=== PATIENT | male | born 1985 | race Caucasian/White ===

== ENCOUNTER 2020-10-26 11:33 | Emergency (ER) | payer BC ==
[~2020-10-26] VITALS: Ht 182.9 cm; Wt 122.5 kg
[~2020-10-26 11:33] MED LIST: NORCO 5-325 TA1 EACH PO; PROAIR HFA8.5 GM INH; ZITHROMAX250 MG PO
--- OUTSIDE RECORDS SUMMARY | 2020-10-26 11:36 | XMS ---
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 EPapito VISIT COUNT (12 MO.) 1 FLORA [facility] TOTAL 1 NOTE: Visits indicate total known visits. ED/UCC VISIT TRACKING (12 MO.) 10/26/2020 11:34 [place] [place] TYPE: Emergency COMPLAINT: - DIZZINESS INPATIENT VISIT TRACKING (12 MO.) No inpatient visits to display in this time frame [id number]
[2020-10-26] MEDS ORDERED: LISINOPRIL20 MG PO (11:52)
[2020-10-26] MEDS ORDERED: MELOXICAM15 MG PO (11:53)
[2020-10-26] MEDS ORDERED: ONDANSETRON ODT8 MG PO (12:31)
[2020-10-26] MEDS ORDERED: MOTION RELIEF25 MG PO (12:31)
[2020-10-26] MEDS ORDERED: ATIVAN1 MG PO (12:31)
== END 2020-10-26 12:46 | disposition home or self-care (01) ==
LOC: ED 11:33
DX: R42 Dizziness and giddiness (principal); Z88.0 Allergy status to penicillin; I10 Essential (primary) hypertension; Z79.899 Other long term (current) drug therapy
CPT/HCPCS: 99283